=== PATIENT | male | born 1985 | race Two or more races ===

== ENCOUNTER 2022-03-28 20:36 | Emergency (ER) | payer OTHER ==
[~2022-03-28] VITALS: Ht 177.8 cm; Wt 100.0 kg
[2022-03-28 23:58] LABS: Basophils # (auto) 0 10 ^3/uL (0-0.2); Eosinophils # (auto) 0 10 ^3/uL (0-0.8); Hematocrit 42.2 % (41.0-53.0); Hemoglobin 13.8 g/dL (13.5-17.5); Mean Corpuscular Hgb Conc. 32.8 g/dL (32.0-36.0)
[2022-03-29] LABS: Basophils % (auto) 0.8 % (0.0-2.0); Eosinophils % (auto) 0.1 % (0.0-7.0); Lymphocytes # (auto) 2.1 10 ^3/uL (0.4-5.4); Lymphocytes % (auto) 38.4 % (10.0-50.0); Mean Corpuscular Hemoglobin 26.6 pg (28.0-32.0); Mean Corpuscular Volume 81.3 fL (80.0-100.0); Monocytes # (auto) 0.4 10 ^3/uL (0-1.3); Monocytes % (auto) 8.1 % (0.0-12.0); Neutrophils # (auto) 2.9 10 ^3/uL (1.6-8.6); Neutrophils % (auto) 52.6 % (37.0-80.0); Nucleated Red Blood Cells % 0.2 %; Red Blood Cells 5.19 10^6/uL (4.5-5.90); White Blood Cell 5.5 10^3/uL (4.4-10.8)
[2022-03-29 00:17] LABS: Albumin 2.2 g/dL (3.4-5.0); Calcium 8.4 mg/dL (8.5-10.1); Potassium 4.1 mmol/L (3.5-5.1)
[2022-03-29 00:20] LABS: BUN/Creatinine Ratio 8.7; Bilirubin, Total 0.3 mg/dL (0.2-1.0)
[2022-03-29 03:08] VITALS: BP 150/97
== END 2022-03-29 03:15 | disposition home or self-care (01) ==
LOC: ER 20:36
DX: I89.0 Lymphedema, not elsewhere classified (principal); E11.65 Type 2 diabetes mellitus with hyperglycemia; I10 Essential (primary) hypertension
CPT/HCPCS: 36415; 71045; 80053; 82962; 83880; 85025

== ENCOUNTER 2024-10-31 19:56 | Inpatient (IN) | payer OTHER ==
[~2024-10-31] VITALS: Ht 175.3 cm; Wt 93.1 kg
[2024-10-31] MEDS: ACETAMINOPHEN 325 MG TAB PO ONE (20:51)
[2024-10-31 21:22] LABS: Basophils # (auto) 0 10 ^3/uL (0-0.2); Basophils % (auto) 0.3 % (0.0-2.0); Eosinophils # (auto) 0 10 ^3/uL (0-0.8); Hematocrit 35.1 % (41.0-53.0); Hemoglobin 11.4 g/dL (13.5-17.5); Lymphocytes # (auto) 1.3 10 ^3/uL (0.4-5.4); Lymphocytes % (auto) 8.9 % (10.0-50.0); Mean Corpuscular Hemoglobin 25.5 pg (28.0-32.0); Mean Corpuscular Hgb Conc. 32.5 g/dL (32.0-36.0); Mean Corpuscular Volume 78.3 fL (80.0-100.0); Monocytes # (auto) 0.9 10 ^3/uL (0-1.3); Monocytes % (auto) 6.2 % (0.0-12.0); Neutrophils # (auto) 11.9 10 ^3/uL (1.6-8.6); Neutrophils % (auto) 84.6 % (37.0-80.0); Platelet Count (auto) 249 10^3/uL (140-450); Red Blood Cells 4.48 10^6/uL (4.5-5.90); Red Cell Distribution Width 16.2 % (11.8-14.3); White Blood Cell 14.1 10^3/uL (4.4-10.8)
--- NOTE | 2024-10-31 21:42 | DVH ---
Left lower extremity venous duplex Clinical History: LLE swelling and calf pain Comparison: None Technique: Duplex Doppler evaluation of the deep venous system of the left lower extremity from the common femor al vein to the popliteal vein including color Doppler and spectral/pulsed waveform analysis was perfo rmed. Findings: The common femoral vein demonstrates appropriate compressibility and waveform variability. There is compressibility/patency of the great saphenous vein at the proximal thigh. The femoral vein demonstrates appropriate compressibility and waveform variability. The deep femoral vein demonstrates appropriate compressibility and waveform variability. The popliteal vein demonstrates appropriate compressibility and waveform variability. There is normal compressibility at the tibioperoneal trunk. Impression: 1. No left femoropopliteal venous thrombosis.
[2024-10-31 21:43] LABS: Albumin 3.6 g/dL (3.2-4.8); Anion Gap 9 (5-15); BUN/Creatinine Ratio 12.2 (10.0-20.0); Carbon Dioxide 22 mmol/L (20-31); Chloride 102 mmol/L (98-107); Potassium 4.5 mmol/L (3.5-5.1)
[2024-10-31 21:44] LABS: Bilirubin, Total 0.3 mg/dL (0.2-1.0); Total Protein 6.4 g/dL (5.7-8.2)
[2024-10-31 21:47] LABS: Alanine Aminotransferase 49 U/L (7-40); Alkaline Phosphatase 173 U/L (46-116); Aspartate Aminotransferase 42 U/L (13-40); Blood Urea Nitrogen 36 mg/dL (9-23); Calcium 8.5 mg/dL (8.7-10.4); Glucose 253 mg/dL (74-106); Sodium 133 mmol/L (136-145)
--- NOTE | 2024-10-31 22:15 | ED.PDOC ---
History of Present Illness HPI Comments 39-year-old male complains of swelling in both his legs but significantly worse in the left leg for the last 1 month. Patient states that it feels like there is pressure on the leg no as well Chief Complaint: Lower Extremity Time Seen by MD: 20:25 Allergies: Coded Allergies: NO KNOWN ALLERGIES (Unverified , 10/31/24) Mode of Arrival: Ambulatory Past Medical History PAST MEDICAL HISTORY: DM, HTN Surgical History: Denies all surgeries Family History Family History: Unknown Social History Smoker: Non-Smoker Alcohol: Denies ETOH Use Drugs: Denies Drug Use Constitutional: reports: fatigue Cardiovascular: reports: edema Musculoskeletal: reports: muscle pain All Other Systems: Reviewed and Negative Physical Exam General Appearance: Mild Distress HEENT: Normal ENT Inspection, Pharynx Normal, TMs Normal Neck: Full Range of Motion, Non-Tender, Normal, Normal Inspection Respiratory: Chest Non-Tender, Lungs Clear, No Accessory Muscle Use, No Respiratory Distress, Normal Breath Sounds Cardiovascular: No Edema, No JVD, No Murmur, No Gallop, Normal Peripheral Pulses, Regular Rate/Rhythm Breast Exam: Deferred Gastrointestinal: No Organomegaly, Non Tender, No Pulsatile Mass, Normal Bowel Sounds, Soft Genitalia: Deferred Pelvic: Deferred Rectal: Deferred Extremities: Leg edema, Swelling Musculoskeletal : Apperance: Normal Neurologic: Alert, paper cleaner II-XII nml as Tested, No Motor Deficits, Normal Affect, Normal Mood, No Sensory Deficits Cerebellar Function: Normal Reflexes: Normal Skin: Dry, Normal Color, Warm Lymphatic: No Adenopathy Was a procedure done? Was a procedure done?: No Differential Dx Considerations may include: Differential diagnosis includes but is not limited to: DVT, CHF coronary ischemia, dehydration, sepsis, electrolyte abnormality, symptomatic anemia, renal failure and others X-Ray, Labs, Meds, VS Vital Signs Date Time Temp Pulse Resp B/P (MAP) Pulse Ox O2 Delivery O2 Flow Rate FiO2 10/31/24 20:51 100.6 10/31/24 20:15 100.6 127 16 171/102 (125) 97 Lab Test 10/31/24 20:57 Range/Units White Blood Count 14.1 H 4.4-10.8 10^3/uL Red Blood Count 4.48 L 4.5-5.90 10^6/uL Hemoglobin 11.4 L 13.5-17.5 g/dL Hematocrit 35.1 L 41.0-53.0 % Mean Corpuscular Volume 78.3 L 80.0-100.0 fL Mean Corpuscular Hemoglobin 25.5 L 28.0-32.0 pg Mean Corpuscular Hemoglobin Concent 32.5 32.0-36.0 g/dL Red Cell Distribution Width 16.2 H 11.8-14.3 % Platelet Count 249 140-450 10^3/uL Mean Platelet Volume 9.8 6.9-10.8 fL Neutrophils (%) (Auto) 84.6 H 37.0-80.0 % Lymphocytes (%) (Auto) 8.9 L 10.0-50.0 % Monocytes (%) (Auto) 6.2 0.0-12.0 % Eosinophils (%) (Auto) 0.0 0.0-7.0 % Basophils (%) (Auto) 0.3 0.0-2.0 % Neutrophils # (Auto) 11.9 H 1.6-8.6 10 ^3/uL Lymphocytes # (Auto) 1.3 0.4-5.4 10 ^3/uL Monocytes # (Auto) 0.9 0-1.3 10 ^3/uL Eosinophils # (Auto) 0 0-0.8 10 ^3/uL Basophils # (Auto) 0 0-0.2 10 ^3/uL Nucleated Red Blood Cells 0.0 % D-Dimer, Quantitative 1.20 H 0.0-0.49 mg/L FEU Sodium Level 133 L 136-145 mmol/L Potassium Level 4.5 3.5-5.1 mmol/L Chloride Level 102 98-107 mmol/L Carbon Dioxide Level 22 20-31 mmol/L Anion Gap 9 5-15 Blood Urea Nitrogen 36 H 9-23 mg/dL Creatinine 2.96 H 0.700-1.30 mg/dL Glomerular Filtration Rate Calc 27 >90 mL/min BUN/Creatinine Ratio 12.2 10.0-20.0 Serum Glucose 253 H 74-106 mg/dL Calcium Level 8.5 L 8.7-10.4 mg/dL Total Bilirubin 0.3 0.2-1.0 mg/dL Aspartate Amino Transferase (AST) 42 H 13-40 U/L Alanine Aminotransferase (ALT) 49 H 7-40 U/L Alkaline Phosphatase 173 H 46-116 U/L Troponin I High Sensitivity 39 </=54 ng/L B-Type Natriuretic Peptide 51.55 0-100 pg/mL Total Protein 6.4 5.7-8.2 g/dL Albumin 3.6 3.2-4.8 g/dL Current Medications Medications (Trade) Dose Ordered Sig/Taiwo Route Start Time Stop Time Status Last Admin Acetaminophen (Tylenol Tablet) 650 mg ONCE ONCE PO 10/31/24 20:45 10/31/24 20:46 DC 10/31/24 20:51 Time of 1ST Reevaluation: 22:10 Reevaluation 1ST: Unchanged Patient Education/Counseling: Diagnosis, Treatment Family Education/Counseling: No Family Present Departure 1 Departure Time of Disposition: 22:10 Impression: Primary Impression: Peripheral edema Additional Impression: Acute renal injury Disposition: ADMITTED INPATIENT Condition: Guarded Discharged With: Self Comments Bilateral Lower Extremity Edema with Acute Kidney Injury Chief Complaint: Fatigue and bilateral lower extremity swelling History of Present Illness: 39-year-old male with a history of hypertension and type 2 diabetes presents to the ED with complaints of fatigue and bilateral lower extremity swelling, left greater than right. Patient's current presentation is complicated by significantly elevated blood glucose and newly discovered acute kidney injury. Review of Systems: Constitutional: Positive for fatigue Cardiovascular: Positive for bilateral lower extremity edema, left > right Otherwise negative or unable to assess Medications: Unable to assess from provided information Likely on medications for diabetes and hypertension Allergies: No known allergies documented Past Medical History: 1. Hypertension 2. Type 2 Diabetes Mellitus Physical Exam: Limited physical exam documentation available Extremities: Bilateral lower extremity edema noted, left greater than right Lab Results: WBC: 14, 000 (Elevated) Blood Glucose: 253 mg/dL (Elevated) BUN: 36 mg/dL (Elevated) Creatinine: 2.96 mg/dL (Elevated) Sodium: 133 mEq/L (Mild hyponatremia) Alkaline Phosphatase: 173 (Mildly elevated) Imaging and Other Relevant Results: Left Lower Extremity Ultrasound: - Negative for deep vein thrombosis Medical Decision Making: Summary Statement: 39-year-old male with poorly controlled diabetes and hypertension presenting with bilateral lower extremity edema and newly discovered acute kidney injury. Problem List: 1. Acute kidney injury 2. Poorly controlled diabetes 3. Bilateral lower extremity edema 4. Hypertension 5. Leukocytosis Differential Diagnosis: 1. Acute kidney injury (pre-renal vs intrinsic renal) 2. Diabetic nephropathy 3. Hypertensive nephropathy 4. Volume overload 5. Infection given leukocytosis ED Course: Patient underwent laboratory evaluation revealing acute kidney inju ry, hyperglycemia, and leukocytosis. Left lower extremity ultrasound performed to rule out DVT was negative. After shared decision making, patient agreed to hospital admission for management of acute kidney injury and poorly controlled diabetes. Assessment and Plan: 1. Acute Kidney Injury - Admit to hospital for further evaluation and management - Trending of renal function - Nephrology consultation 2. Poorly Controlled Diabetes - Blood glucose monitoring - Insulin management - Endocrinology consultation consideration 3. Bilateral Lower Extremity Edema - DVT ruled out by ultrasound - Monitor fluid status - Evaluate for cardiac contribution 4. Leukocytosis - Monitor for signs of infection - Blood cultures if clinically indicated Billing Information: ICD-10: N17.9 - Acute kidney failure, unspecified ICD-10: E11.65 - Type 2 diabetes mellitus with hyperglycemia ICD-10: R60.0 - Localized edema ICD-10: D72.829 - Elevated white blood cell count, unspecified Critical Care Note Critical Care Time?: Yes Critical care comment: Total critical care time: Approximately 36 minutes Due to a high probability of clinically significant, life threatening deterioration, the patient required my highest level of preparedness to intervene emergently and I personally spent this critical care time directly and personally managing the patient. This critical care time included obtaining a history; examining the patient; pulse oximetry; ordering and review of studies; arranging urgent treatment with development of a management plan; evaluation of patient's response to treatment; frequent reassessment; and, discussions with other providers. This critical care time was performed to assess and manage the high probability of imminent, life-threatening deterioration that could result in multi-organ failure. It was exclusive of separately billable procedures and treating other patients. Stability Stability form required: No Heart Score Heart Score: Heart Score Response (Comments) Value History N/A 0 EKG N/A 0 Age N/A 0 Risk Factors N/A 0 Troponin N/A 0 Total 0 PARMINDER CASPER MD Oct 31, 2024 22:15
[2024-10-31] MEDS ORDERED: ACETAMINOPHEN 325 MG TAB PO PRN (23:00)
[2024-10-31] MEDS ORDERED: CLINDAMYCIN 600MG IV 50 ML IV SCH (23:00)
[2024-10-31] MEDS ORDERED: ONDANSETRON HCL 4 MG/2 ML VIAL IV PRN (23:00)
[2024-10-31] MEDS ORDERED: DEXTROSE (50%) 50ML SYRG IV PRN (23:00)
[2024-10-31] MEDS ORDERED: HYDROcodone-ACET 5/325MG TAB PO PRN (23:00)
[2024-11-01] MEDS: ACCU-CHEK COMFORT CURVE STRIP VI SCH
[2024-11-01] MEDS: InsuLIN REG 1unit/0.01ml Soln (100units/ml) SC SCH
[2024-11-01 00:19] VITALS: TEMP 98.8
--- NOTE | 2024-11-01 00:47 | DVHHP2 ---
History of Present Illness Reason for Visit: Lower extremity swelling History of Present Illness 39-year-old male with a history of hypertension and diabetes mellitus presents for evaluation of bilateral lower extremity swelling. Patient reports a two week history of worsening lower extremity swelling. He states the left lower extremity seems to be more swollen and tender to the touch. He also has noticed redness from the ankle up to his calf on the left leg. Denies chest pain or shortness for breath. Denies any trauma to the area. Past Medical History Diabetes mellitus and hypertension Past Surgical History Denies Family History Noncontributory Smoke: No ALCOHOL: none Drugs: None Lives: with Family Review of Systems Review of Systems Review of systems are currently negative otherwise addressed in HPI. Allergies: Coded Allergies: NO KNOWN ALLERGIES (Unverified , 10/31/24) Medications Current Medications Medications Dose Ordered Sig/Taiwo Route Start Time Stop Time Status Last Admin Dose Admin Atorvastatin Calcium 40 mg HS PO 11/01/24 22:00 Nifedipine 30 mg DAILY PO 11/01/24 10:00 Furosemide 20 mg DAILY IV 11/01/24 10:00 Clindamycin Phosphate 50 ml @ 50 mls/hr Q8HR IV 10/31/24 23:00 Ceftriaxone Sodium 50 ml @ 100 mls/hr DAILY@2300 IV 11/01/24 23:00 Diagnostic Test (Pha) 1 strip Q6HR 11/01/24 00:00 Insulin Human Regular Q6HR SC 11/01/24 00:00 Dextrose 50 ml UD PRN IV 10/31/24 23:00 Acetaminophen/ Hydrocodone Bitart 1 tab Q4HP PRN PO 10/31/24 23:00 Ondansetron HCl 4 mg Q4HP PRN IV 10/31/24 23:00 Acetaminophen 650 mg Q6HP PRN PO 10/31/24 23:00 Exam Vital Signs Vital Signs Date Time Temp Pulse Resp B/P (MAP) Pulse Ox O2 Delivery O2 Flow Rate FiO2 11/01/24 00:19 98.8 115 20 139/88 (105) 99 98.8 11/01/24 00:19 Room Air Exam Gen: 39-year-old male in mild distress Skin: Warm, dry, normal color and texture, no rash. HEENT: Normocephalic atraumatic, mucous membranes moist and pink. Neck: Cervical and supraclavicular nodes normal without enlargement, trachea is midline, thyroid gland is normal without masses. Pulmonary: Clear to auscultation and percussion bilaterally. Cardiac: Regular rate and rhythm. No murmur Abdomen: Soft, nontender, nondistended, bowel sounds present all 4 quadrants, no guarding, no rigidity, no organomegaly. Extremities: No cyanosis, clubbing, bilateral lower extremity edema left worse than right with erythema Neuro: Cranial nerves II through XII grossly intact, normal affect and speech, no focal motor deficits. Labs/Xrays ORDERING PHYSICIAN: PARMINDER CASPER MD PROCEDURE(s): LLDVT - LT Lower DVT REASON: LLE swelling and calf pain ORDER NUMBER(s): [id number], ACCESSION NUMBER(s): [id number] Left lower extremity venous duplex Clinical History: LLE swelling and calf pain Comparison: None Technique: Duplex Doppler evaluation of the deep venous system of the left lower extremity from the common femoral vein to the popliteal vein including color Doppler and spectral/pulsed waveform analysis was performed. Findings: The common femoral vein demonstrates appropriate compressibility and waveform variability. There is compressibility/patency of the great saphenous vein at the proximal thigh. The femoral vein demonstrates appropriate compressibility and waveform variability. The deep femoral vein demonstrates appropriate compressibility and waveform variability. The popliteal vein demonstrates appropriate compressibility and waveform variability. There is normal compressibility at the tibioperoneal trunk. Impression: 1. No left femoropopliteal venous thrombosis. Labs Test 10/31/24 23:20 10/31/24 20:57 Range/Units Lactic Acid Level 0.9 0.4-2.0 mmol/L White Blood Count 14.1 H 4.4-10.8 10^3/uL Red Blood Count 4.48 L 4.5-5.90 10^6/uL Hemoglobin 11.4 L 13.5-17.5 g/dL Hematocrit 35.1 L 41.0-53.0 % Mean Corpuscular Volume 78.3 L 80.0-100.0 fL Mean Corpuscular Hemoglobin 25.5 L 28.0-32.0 pg Mean Corpuscular Hemoglobin Concent 32.5 32.0-36.0 g/dL Red Cell Distribution Width 16.2 H 11.8-14.3 % Platelet Count 249 140-450 10^3/uL Mean Platelet Volume 9.8 6.9-10.8 fL Neutrophils (%) (Auto) 84.6 H 37.0-80.0 % Lymphocytes (%) (Auto) 8.9 L 10.0-50.0 % Monocytes (%) (Auto) 6.2 0.0-12.0 % Eosinophils (%) (Auto) 0.0 0.0-7.0 % Basophils (%) (Auto) 0.3 0.0-2.0 % Neutrophils # (Auto) 11.9 H 1.6-8.6 10 ^3/uL Lymphocytes # (Auto) 1.3 0.4-5.4 10 ^3/uL Monocytes # (Auto) 0.9 0-1.3 10 ^3/uL Eosinophils # (Auto) 0 0-0.8 10 ^3/uL Basophils # (Auto) 0 0-0.2 10 ^3/uL Nucleated Red Blood Cells 0.0 % D-Dimer, Quantitative 1.20 H 0.0-0.49 mg/L FEU Sodium Level 133 L 136-145 mmol/L Potassium Level 4.5 3.5-5.1 mmol/L Chloride Level 102 98-107 mmol/L Carbon Dioxide Level 22 20-31 mmol/L Anion Gap 9 5-15 Blood Urea Nitrogen 36 H 9-23 mg/dL Creatinine 2.96 H 0.700-1.30 mg/dL Glomerular Filtration Rate Calc 27 >90 mL/min BUN/Creatinine Ratio 12.2 10.0-20.0 Serum Glucose 253 H 74-106 mg/dL Calcium Level 8.5 L 8.7-10.4 mg/dL Total Bilirubin 0.3 0.2-1.0 mg/dL Aspartate Amino Transferase (AST) 42 H 13-40 U/L Alanine Aminotransferase (ALT) 49 H 7-40 U/L Alkaline Phosphatase 173 H 46-116 U/L Troponin I High Sensitivity 39 </=54 ng/L B-Type Natriuretic Peptide 51.55 0-100 pg/mL Total Protein 6.4 5.7-8.2 g/dL Albumin 3.6 3.2-4.8 g/dL Assessment/Plan Assessment/Plan Assessment Acute on chronic renal failure Transaminitis Lower extremity cellulitis Hypertension Diabetes mellitus Plan Admit the patient to [facility] surge to the hospitalist Nephrology consultation Chest x-ray pending Echocardiogram pending Clindamycin/Rocephin IV Lasix Resume home medications Continue treatment per orders. Plan discussed with: Patient My Orders Orders - NITA GARZA Procedure Category Date Status Time Consistent DIET 11/01/24 Transmitted Carb(Ccho)Diabetes Breakfast Atorvastatin (Lipitor) PHA 11/01/24 In Process 22:00 Nifedipine Er PHA 11/01/24 In Process (Procardia Xl 10:00 Furosemide Injection PHA 11/01/24 In Process (Lasix Injection) 10:00 Clindamycin 600mg Iv PHA 10/31/24 In Process (Cleocin Iv) 23:00 Blood Culture KEHINDE 10/31/24 In Process 23:00 Ceftriaxone 1gm/50ml PHA 11/01/24 In Process D5w (Rocephin) 23:00 Glucose Blood PHA 11/01/24 In Process (Accu-Chek Comfort 00:00 Insulin R (Human) PHA 11/01/24 In Process (Insulin R) 00:00 Dextrose 50% Syringe PHA 10/31/24 In Process 23:00 Admit ADMIT 10/31/24 Transmitted 23:00 Hydrocodone-Acet PHA 10/31/24 In Process 5/325mg Tab ([place] 23:00 Ondansetron Hcl PHA 10/31/24 In Process (Zofran) 23:00 Complete Blood Count LAB 11/01/24 Logged 04:00 Comprehensive LAB 11/01/24 Logged Metabolic Panel 04:00 Echo 2d Mode Cardiac US 10/31/24 Logged DOP 23:00 Condition: Stable KIMMY 10/31/24 In Process 23:00 Acetaminophen Tablet PHA 10/31/24 In Process (Tylenol Tablet) 23:00 Bedrest With Bathroom KIMMY 10/31/24 In Process Privileg 23:00 *Dr. [facility] CONS 10/31/24 Transmitted -[place] 23:00 Date of Service: Oct 31, 2024 Billing Provider: NITA GARZA Common Visit Codes: [id number] INP/OBS CARE (HIGH) NITA GARZA Nov 01, 2024 00:46
--- NOTE | 2024-11-01 01:05 | DVH ---
CHEST RADIOGRAPH Indication: SOB Technique: Single frontal view of the chest was obtained COMPARISON: CHEST PORTABLE on DOS: 03/28/22 FINDINGS: Lines and Tubes: None Lungs: Clear Pleura: No effusion. No pneumothorax. Cardiomediastinal contours: Unremarkable Bones: Unremarkable IMPRESSION: 1. No acute disease.
[2024-11-01] MEDS ORDERED: INSR100KIT IV (01:20)
[2024-11-01] MEDS ORDERED: METF-370 PO (01:20)
[2024-11-01] MEDS ORDERED: FURO1TAB31 PO (01:20)
[2024-11-01] MEDS: FUROSEMIDE 40 MG/4 ML VIAL IV ONE (02:18)
[2024-11-01] MEDS: cefTRIAXone 1GM/50ML D5W 50 ML IV ONE (02:18)
[2024-11-01 04:20] VITALS: BP 152/92; PULSE 111; RESP 19; O2SAT 99
[2024-11-01] MEDS: CLINDAMYCIN 600MG IV 50 ML IV SCH (04:31)
[2024-11-01 05:22] LABS: Basophils # (auto) 0 10 ^3/uL (0-0.2); Eosinophils # (auto) 0 10 ^3/uL (0-0.8); Mean Corpuscular Hgb Conc. 32.7 g/dL (32.0-36.0)
[2024-11-01 05:23] LABS: Basophils % (auto) 0.3 % (0.0-2.0); Hematocrit 30.6 % (41.0-53.0); Lymphocytes # (auto) 1.1 10 ^3/uL (0.4-5.4); Lymphocytes % (auto) 9.2 % (10.0-50.0); Mean Corpuscular Hemoglobin 25.1 pg (28.0-32.0); Mean Corpuscular Volume 76.8 fL (80.0-100.0); Monocytes % (auto) 8.6 % (0.0-12.0); Neutrophils # (auto) 9.8 10 ^3/uL (1.6-8.6); Neutrophils % (auto) 81.9 % (37.0-80.0); Platelet Count (auto) 203 10^3/uL (140-450); Red Blood Cells 3.98 10^6/uL (4.5-5.90); Red Cell Distribution Width 16.2 % (11.8-14.3); White Blood Cell 11.9 10^3/uL (4.4-10.8)
[2024-11-01 05:55] LABS: Alanine Aminotransferase 35 U/L (7-40); Anion Gap 10 (5-15); BUN/Creatinine Ratio 11.8 (10.0-20.0); Carbon Dioxide 22 mmol/L (20-31); Chloride 104 mmol/L (98-107)
[2024-11-01 05:56] LABS: Aspartate Aminotransferase 28 U/L (13-40)
[2024-11-01 06:41] LABS: Albumin 3.2 g/dL (3.2-4.8); Alkaline Phosphatase 140 U/L (46-116); Bilirubin, Total 0.2 mg/dL (0.2-1.0); Blood Urea Nitrogen 38 mg/dL (9-23); Calcium 8.4 mg/dL (8.7-10.4); Glucose 173 mg/dL (74-106); Sodium 136 mmol/L (136-145); Total Protein 5.6 g/dL (5.7-8.2)
[2024-11-01 08:21] LABS: Magnesium 2.3 mg/dL (1.6-2.6)
[2024-11-01 08:23] LABS: Phosphorus 4.2 mg/dL (2.4-5.1)
[2024-11-01 08:27] LABS: INR 0.97 (0.9-1.15); Partial Thromboplastin Time 27.9 SEC (24.5-34.5); Prothrombin Time 10.3 sec (9.3-11.8)
--- NOTE | 2024-11-01 09:05 | DVHDSRES ---
Discharge Summary Date of Admission Resident Creating Document: JOSE M LAKHANI RESIDENT Oct 31, 2024 at 23:00 Date of Discharge: Nov 01, 2024 Admitting Diagnosis Bilateral lower extremity swelling Labs/Diagnostic Data: Laboratory Results Test 11/01/24 06:23 11/01/24 04:36 10/31/24 23:20 10/31/24 20:57 POC Glucose 173 mg/dl (70-106) White Blood Count 11.9 10^3/uL (4.4-10.8) Red Blood Count 3.98 10^6/uL (4.5-5.90) Hemoglobin 10.0 g/dL (13.5-17.5) Hematocrit 30.6 % (41.0-53.0) Mean Corpuscular Volume 76.8 fL (80.0-100.0) Mean Corpuscular Hemoglobin 25.1 pg (28.0-32.0) Mean Corpuscular Hemoglobin Concent 32.7 g/dL (32.0-36.0) Red Cell Distribution Width 16.2 % (11.8-14.3) Platelet Count 203 10^3/uL (140-450) Mean Platelet Volume 10.0 fL (6.9-10.8) Neutrophils (%) (Auto) 81.9 % (37.0-80.0) Lymphocytes (%) (Auto) 9.2 % (10.0-50.0) Monocytes (%) (Auto) 8.6 % (0.0-12.0) Eosinophils (%) (Auto) 0.0 % (0.0-7.0) Basophils (%) (Auto) 0.3 % (0.0-2.0) Neutrophils # (Auto) 9.8 10 ^3/uL (1.6-8.6) Lymphocytes # (Auto) 1.1 10 ^3/uL (0.4-5.4) Monocytes # (Auto) 1.0 10 ^3/uL (0-1.3) Eosinophils # (Auto) 0 10 ^3/uL (0-0.8) Basophils # (Auto) 0 10 ^3/uL (0-0.2) Nucleated Red Blood Cells 0.0 % Prothrombin Time 10.3 sec (9.3-11.8) Prothrombin Time INR 0.97 (0.9-1.15) Activated Partial Thromboplast Time 27.9 SEC (24.5-34.5) Sodium Level 136 mmol/L (136-145) Potassium Level 4.0 mmol/L (3.5-5.1) Chloride Level 104 mmol/L (98-107) Carbon Dioxide Level 22 mmol/L (20-31) Anion Gap 10 (5-15) Blood Urea Nitrogen 38 mg/dL (9-23) Creatinine 3.22 mg/dL (0.700-1.30) Glomerular Filtration Rate Calc 24 mL/min (>90) BUN/Creatinine Ratio 11.8 (10.0-20.0) Serum Glucose 173 mg/dL (74-106) Calcium Level 8.4 mg/dL (8.7-10.4) Phosphorus Level 4.2 mg/dL (2.4-5.1) Magnesium Level 2.3 mg/dL (1.6-2.6) Total Bilirubin 0.2 mg/dL (0.2-1.0) Aspartate Amino Transferase (AST) 28 U/L (13-40) Alanine Aminotransferase (ALT) 35 U/L (7-40) Alkaline Phosphatase 140 U/L (46-116) Total Protein 5.6 g/dL (5.7-8.2) Albumin 3.2 g/dL (3.2-4.8) Triglycerides Level 217 mg/dL (< 150) Cholesterol Level 142 mg/dL (< 200) LDL Cholesterol 78 mg/dL (< 100) HDL Cholesterol 30 mg/dL (40-59) HIV (1&2) Antibody Negative (Negative) Lactic Acid Level 0.9 mmol/L (0.4-2.0) D-Dimer, Quantitative 1.20 mg/L FEU (0.0-0.49) Troponin I High Sensitivity 39 ng/L (</=54) B-Type Natriuretic Peptide 51.55 pg/mL (0-100) Other Laboratory Tests 11/01/24 04:36 Brief Hx & Hospital Course: 39-year-old male with a history of hypertension and diabetes mellitus presents for evaluation of bilateral lower extremity swelling. Patient reports a two week history of worsening lower extremity swelling. He states the left lower extremity seems to be more swollen and tender to the touch. He also has noticed redness from the ankle up to his calf on the left leg. Denies chest pain or shortness for breath. Denies any trauma to the area. Hospital course: Extremity venous study showed no left femoropopliteal venous thrombosis. Chest x-ray showed no acute disease. Patient was started on IV clindamycin and IV ceftriaxone. IV Lasix was also given. Workup was ordered for urine bacterial culture, urine creatinine, urine protein, urine sodium, urine protein to creatinine ratio, microalbumin, hepatitis panel, HIV 1 and 2 antibodies. However, patient left against medical advice before further evaluation and management could be completed Condition at Discharge: Undetermined Final Diagnosis/Problems List GABRIELA likely hemodynamically mediated/VMN on CKD Transaminitis Lower extremity cellulitis Hypertension Diabetes mellitus Discharge Disposition: AMA Discharge Statement: "Patient was advised to return to the ER or call 911 if any headaches, dizziness, shortness of breath, chest pain, abdominal pain, bleeding, fevers, or worsening of medical condition. Patient was counseled about treatment plan, medications, possible side effects, patientverbalized understanding. All questions were answered to the best of my ability. This discharge took greater then 30 minutes in planning, reviewing documentation, counseling the patient, and discussing with other team members." ASSESSMENT ASSESSMENT Assessment JOSE M LAKHANI RESIDENT Nov 01, 2024 09:05
[2024-11-01] MEDS ORDERED: NIFEdipine ER 30 MG TAB PO SCH (10:00)
[2024-11-01] MEDS ORDERED: FUROSEMIDE 20 MG/2 ML VIAL IV SCH (10:00)
[2024-11-01] MEDS ORDERED: GABAPENTIN 100 MG CAP PO SCH (10:00)
[2024-11-01] MEDS ORDERED: ATORVASTATIN 20 MG TAB PO SCH (22:00)
[2024-11-01] MEDS ORDERED: cefTRIAXone 1GM/50ML D5W 50 ML IV SCH (23:00)
[2024-11-03 11:06] LABS: Hepatitis A Ab IgM Negative; Hepatitis B Core IgM Negative (Negative); Hepatitis B Surface Antigen Negative (Negative); Hepatitis C Antibody Negative (Negative)
== END 2024-11-01 08:31 | disposition left against medical advice (07) | DRG 684 ==
LOC: ER 19:56 → OVERFLOW 23:00
PROVIDERS: ADMIT Student in an Organized Health Care Education/Training Program; ATTEND Emergency Medicine
DX: N17.9 Acute kidney failure, unspecified (principal); R74.01 Elevation of levels of liver transaminase levels; I12.9 Hypertensive chronic kidney disease with stage 1 through stage 4 chronic kidney disease, or unspecified chronic kidney disease; E11.22 Type 2 diabetes mellitus with diabetic chronic kidney disease; Z53.29 Procedure and treatment not carried out because of patient's decision for other reasons; N18.9 Chronic kidney disease, unspecified
CPT/HCPCS: 36415; 71045; 80053; 80061; 80074; 82962; 83036; 83605; 83735; 83880; 84100; 84484; 85025; 85379; 85610; 85730; 86703; 87040; 93971; 99291; G0378; J1815; J3490